=== PATIENT | male | born 1995 | race Native Hawaiian/Other Pacific Islander ===

== ENCOUNTER 2019-11-23 19:09 | Emergency (ER) | payer MEDICAID | END 2019-11-23 19:50 | disposition left against medical advice (07) | LOC: JP.ED 19:09 | DX: Z53.21 Procedure and treatment not carried out due to patient leaving prior to being seen by health care provider (principal) ==

== ENCOUNTER 2020-12-16 10:32 | Emergency (ER) | payer MEDICAID ==
[2020-12-16] MEDS ORDERED: Sodium Chloride 0.9% 10 ML Syringe FLUSH PRN (11:34)
[2020-12-16] MEDS ORDERED: Sodium Chloride 0.9% 1,000 ML IV STA (11:34)
--- NOTE | 2020-12-16 11:39 | EDM.PDOC ---
ED HPI GENERAL MEDICAL PROBLEM - General Chief Complaint: Abdominal Pain Stated Complaint: SEVER ABDOMINAL PAIN-SENT BY Time Seen by Provider: 12/16/20 11:28 Source of Information: Reports: Patient, Family, RN Notes Reviewed History Limitations: Reports: No Limitations - History of Present Illness INITIAL COMMENTS - FREE TEXT/NARRATIVE: 25-year-old gentleman presents emergency department day complaint of abdominal pain, it is predominantly in left upper quadrant it started early this morning and last use alcohol this morning he does admit to drinking several pints of hard liquor per day. No history of pancreatitis no history of abdominal surgeries. He has not had any fevers. - Related Data Allergies Allergy/AdvReac Type Severity Reaction Status Date / Time No Known Allergies Allergy Verified 12/16/20 11:00 Home Meds: Home Meds NK [No Known Home Meds] 12/16/20 [History] Past Medical History - Past Health History Medical/Surgical History: Denies Medical/Surgical History Social & Family History - Tobacco Use Tobacco Use Status *Q: Never Tobacco User - Caffeine Use Caffeine Use: Reports: Coffee, Energy Drinks, Soda - Alcohol Use Days Per Week of Alcohol Use: 7 Number of Drinks Per Day: 8 Total Drinks Per Week: 56 Date of Last Drink: 12/16/20 Time of Last Drink: 05:00 - Recreational Drug Use Recreational Drug Use: No ED ROS GENERAL - Review of Systems Review Of Systems: See Below Constitutional: Reports: No Symptoms Respiratory: Reports: No Symptoms Cardiovascular: Reports: No Symptoms GI/Abdominal: Reports: Abdominal Pain, Diarrhea, Nausea, Vomiting : Reports: No Symptoms ED EXAM, GI/ABD - Physical Exam Exam: See Below Exam Limited By: No Limitations General Appearance: Alert, WD/WN, No Apparent Distress Respiratory/Chest: No Respiratory Distress, Lungs Clear, Normal Breath Sounds, No Accessory Muscle Use, Chest Non-Tender Cardiovascular: Regular Rate, Rhythm, No Murmur GI/Abdominal Exam: Normal Bowel Sounds, Soft, No Distention, Tender (LUQ pain) Course - Vital Signs Last Recorded V/S: Last Vital Signs Temp 97.9 F 12/16/20 11:07 Pulse 82 12/16/20 14:52 Resp 16 12/16/20 11:07 BP 150/84 H 12/16/20 14:52 Pulse Ox 95 12/16/20 13:47 - Orders/Labs/Meds Orders: Active Orders 24 hr Category Date Time Status Patient Status [ADT] Routine ADT 12/16/20 16:45 Active Intake and Output [RC] QSHIFT Care 12/16/20 16:46 Active Oxygen Therapy [RC] PRN Care 12/16/20 16:45 Active Peripheral IV Care [RC] . DIRECTED Care 12/16/20 11:35 Active Up ad Fabiola [RC] ASDIRECTED Care 12/16/20 16:45 Active Vital Signs [RC] Q4H Care 12/16/20 16:45 Active Nothing per Oral Now Diet [DIET] Diet 12/16/20 Dinner Active HYDROmorphone [Dilaudid] Med 12/16/20 16:27 Active 0.5 mg IVPUSH Q1H PRN Iopamidol [Isovue-300 (61%)] Med 12/16/20 11:51 Active 126 ml IV . DIRECTED PRN LORazepam [Ativan] Med 12/16/20 16:48 Active 1 mg IVPUSH Q4H PRN Ondansetron [Zofran] Med 12/16/20 16:50 Active 4 mg IVPUSH Q8H PRN Sodium Chloride 0.9% [Normal Saline] 1,000 ml Med 12/16/20 13:00 Active IV ASDIRECTED Sodium Chloride 0.9% [Normal Saline] 1,000 ml Med 12/16/20 16:00 Active IV ASDIRECTED Sodium Chloride 0.9% [Normal Saline] 1,000 ml Med 12/16/20 17:00 Active IV ASDIRECTED Sodium Chloride 0.9% [Normal Saline] 100 ml Med 12/16/20 12:00 Active IV ASDIRECTED Sodium Chloride 0.9% [Saline Flush] Med 12/16/20 11:34 Active 10 ml FLUSH ASDIRECTED PRN Isolation [COMM] Stat Oth 12/16/20 11:38 Ordered Peripheral IV Insertion Adult [OM.PC] Urgent Oth 12/16/20 11:34 Ordered Medication Orders Hydromorphone HCl (Hydromorphone 0.5 Mg/0.5 Ml Syringe) 0.5 mg IVPUSH Q1H PRN PRN Reason: Abdominal Pain Sodium Chloride (Normal Saline) 100 mls @ 3 mls/sec IV ASDIRECTED FELY Last Admin: 12/16/20 11:58 Dose: 3 mls/sec Documented by: JIL Sodium Chloride (Normal Saline) 1,000 mls @ 999 mls/hr IV ASDIRECTED FELY Last Admin: 12/16/20 14:30 Dose: 999 mls/hr Documented by: JOSEPH Sodium Chloride (Normal Saline) 1,000 mls @ 250 mls/hr IV ASDIRECTED FELY Last Admin: 12/16/20 16:07 Dose: 250 mls/hr Documented by: [id number] Sodium Chloride (Normal Saline) 1,000 mls @ 150 mls/hr IV ASDIRECTED FELY Iopamidol (Iopamidol 612 Mg/Ml 150 Ml Bottle) 126 ml IV . DIRECTED PRN PRN Reason: RADIOLOGY EXAM Stop: 12/17/20 11:52 Last Admin: 12/16/20 11:58 Dose: 126 ml Documented by: JIL Lorazepam (Lorazepam 2 Mg/Ml Sdv) 1 mg IVPUSH Q4H PRN PRN Reason: Anxiety Ondansetron HCl (Ondansetron 4 Mg/2 Ml Sdv) 4 mg IVPUSH Q8H PRN PRN Reason: Nausea/Vomiting Sodium Chloride (Sodium Chloride 0.9% 10 Ml Syringe) 10 ml FLUSH ASDIRECTED PRN PRN Reason: Keep Vein Open Last Admin: 12/16/20 11:58 Dose: 10 ml Documented by: JIL Labs: Laboratory Tests 12/16/20 12/16/20 12/16/20 Range/Units 11:34 11:45 11:45 WBC 8.9 (4.5-11.0) K/uL RBC 5.39 (4.30-5.90) M/uL Hgb 16.2 H (12.0-15.0) g/dL Hct 46.7 (40.0-54.0) % MCV 87 (80-98) fL MCH 30 (27-31) pg MCHC 35 (32-36) % Plt Count 356 (150-400) K/uL Neut % (Auto) 74.7 H (36-66) % Lymph % (Auto) 12.7 L (24-44) % Trinity % (Auto) 10.9 H (2-6) % Eos % (Auto) 1.5 L (2-4) % Baso % (Auto) 0.2 (0-1) % Sodium 144 (140-148) mmol/L Potassium 4.0 (3.6-5.2) mmol/L Chloride 104 (100-108) mmol/L Carbon Dioxide 24 (21-32) mmol/L Anion Gap 16.4 H (5.0-14.0) mmol/L BUN 6 L (7-18) mg/dL Creatinine 0.9 (0.8-1.3) mg/dL Est Cr Clr Drug Dosing 122.36 mL/min Estimated GFR (MDRD) > 60 (>60) Glucose 109 H (74-106) mg/dL Lactic Acid 2.3 H (0.4-2.0) mmol/L Calcium 9.2 (8.5-10.1) mg/dL Total Bilirubin 1.0 (0.2-1.0) mg/dL AST 144 H (15-37) U/L ALT 245 H (12-78) U/L Alkaline Phosphatase 115 (46-116) U/L Total Protein 7.7 (6.4-8.2) g/dL Albumin 4.3 (3.4-5.0) g/dL Globulin 3.4 (2.3-3.5) g/dL Albumin/Globulin Ratio 1.3 (1.2-2.2) Lipase 736 H (73-393) U/L Ethyl Alcohol mg/dL Influenza Type A RNA (NEGATIVE) RSV RNA (INAAT) (NEGATIVE) Influenza Type B RNA (NEGATIVE) SARS-CoV-2 RNA ([facility]) (NEGATIVE) 12/16/20 12/16/20 Range/Units 12:10 16:50 WBC (4.5-11.0) K/uL RBC (4.30-5.90) M/uL Hgb (12.0-15.0) g/dL Hct (40.0-54.0) % MCV (80-98) fL MCH (27-31) pg MCHC (32-36) % Plt Count (150-400) K/uL Neut % (Auto) (36-66) % Lymph % (Auto) (24-44) % Trinity % (Auto) (2-6) % Eos % (Auto) (2-4) % Baso % (Auto) (0-1) % Sodium (140-148) mmol/L Potassium (3.6-5.2) mmol/L Chloride (100-108) mmol/L Carbon Dioxide (21-32) mmol/L Anion Gap (5.0-14.0) mmol/L BUN (7-18) mg/dL Creatinine (0.8-1.3) mg/dL Est Cr Clr Drug Dosing mL/min Estimated GFR (MDRD) (>60) Glucose (74-106) mg/dL Lactic Acid (0.4-2.0) mmol/L Calcium (8.5-10.1) mg/dL Total Bilirubin (0.2-1.0) mg/dL AST (15-37) U/L ALT (12-78) U/L Alkaline Phosphatase (46-116) U/L Total Protein (6.4-8.2) g/dL Albumin (3.4-5.0) g/dL Globulin (2.3-3.5) g/dL Albumin/Globulin Ratio (1.2-2.2) Lipase (73-393) U/L Ethyl Alcohol 9 mg/dL Influenza Type A RNA Negative (NEGATIVE) RSV RNA (INAAT) Negative (NEGATIVE) Influenza Type B RNA Negative (NEGATIVE) SARS-CoV-2 RNA ([place]) Positive H (NEGATIVE) Meds: Medications Generic Name Dose Route Start Last Admin Trade Name Freq PRN Reason Stop Dose Admin Hydromorphone HCl 0.5 mg 12/16/20 16:27 Hydromorphone 0.5 Mg/0.5 Ml Syringe IVPUSH Q1H PRN Abdominal Pain Sodium Chloride 100 mls @ 3 mls/sec 12/16/20 12:00 12/16/20 11:58 Normal Saline IV 3 mls/sec ASDIRECTED FELY Administration Sodium Chloride 1,000 mls @ 999 mls/hr 12/16/20 13:00 12/16/20 14:30 Normal Saline IV 999 mls/hr ASDIRECTED FELY Administration Sodium Chloride 1,000 mls @ 250 mls/hr 12/16/20 16:00 12/16/20 16:07 Normal Saline IV 250 mls/hr ASDIRECTED FELY Administration Sodium Chloride 1,000 mls @ 150 mls/hr 12/16/20 17:00 Normal Saline IV ASDIRECTED FELY Iopamidol 126 ml 12/16/20 11:51 12/16/20 11:58 Iopamidol 612 Mg/Ml 150 Ml Bottle IV 12/17/20 11:52 126 ml . DIRECTED PRN Administration RADIOLOGY EXAM Lorazepam 1 mg 12/16/20 16:48 Lorazepam 2 Mg/Ml Sdv IVPUSH Q4H PRN Anxiety Ondansetron HCl 4 mg 12/16/20 16:50 Ondansetron 4 Mg/2 Ml Sdv IVPUSH Q8H PRN Nausea/Vomiting Sodium Chloride 10 ml 12/16/20 11:34 12/16/20 11:58 Sodium Chloride 0.9% 10 Ml Syringe FLUSH 10 ml ASDIRECTED PRN Administration Keep Vein Open Discontinued Medications Generic Name Dose Route Start Last Admin Trade Name Freq PRN Reason Stop Dose Admin Hydromorphone HCl 0.5 mg 12/16/20 13:06 12/16/20 13:27 Hydromorphone 0.5 Mg/0.5 Ml Syringe IVPUSH 12/16/20 13:07 0.5 mg ONETIME ONE Administration Hydromorphone HCl 1 mg 12/16/20 14:42 12/16/20 15:03 Hydromorphone 1 Mg/Ml Syringe IVPUSH 12/16/20 14:43 1 mg ONETIME ONE Administration Sodium Chloride 1,000 mls @ 999 mls/hr 12/16/20 11:34 12/16/20 12:11 Normal Saline IV 12/16/20 12:34 999 mls/hr .BOLUS STA Administration Lorazepam 1 mg 12/16/20 16:16 12/16/20 16:28 Lorazepam 2 Mg/Ml Sdv IVPUSH 12/16/20 16:17 1 mg ONETIME ONE Administration Ondansetron HCl 4 mg 12/16/20 15:45 12/16/20 16:09 Ondansetron 4 Mg/2 Ml Sdv IVPUSH 12/16/20 15:46 4 mg ONETIME ONE Administration Sodium Chloride 10 ml 12/16/20 11:51 12/16/20 12:13 Sodium Chloride 0.9% 10 Ml Sdv FLUSH 12/16/20 11:52 10 ml ONETIME ONE Administration Departure - Departure Time of Disposition: 17:25 Disposition: DC/Tfer to Acute Hospital 02 Condition: Fair Clinical Impression: COVID-19 Pancreatitis Qualifiers: Chronicity: acute Pancreatitis type: alcohol induced Acute pancreatitis complication: no infection or necrosis Qualified Code(s): K85.20 - Alcohol induced acute pancreatitis without necrosis or infection - Discharge Information Referrals: Manuela Lam DO [Primary Care Provider] - Forms: ED Department Discharge Sepsis Event Note (ED) - Evaluation Sepsis Screening Result: No Definite Risk - Focused Exam Vital Signs: Vital Signs Temp Pulse Resp BP Pulse Ox 12/16/20 14:52 82 150/84 H 12/16/20 13:47 77 135/87 95 12/16/20 12:02 79 175/100 H 12/16/20 11:07 97.9 F 87 16 148/108 H 97 12/16/20 11:00 97.9 F 87 16 148/108 H 97 - My Orders Last 24 Hours: My Active Orders 12/16/20 11:34 Sodium Chloride 0.9% [Saline Flush] 10 ml FLUSH ASDIRECTED PRN Peripheral IV Insertion Adult [OM.PC] Urgent 12/16/20 11:35 Peripheral IV Care [RC] . DIRECTED 12/16/20 11:38 Isolation [COMM] Stat 12/16/20 11:51 Iopamidol [Isovue-300 (61%)] 126 ml IV . DIRECTED PRN 12/16/20 12:00 Sodium Chloride 0.9% [Normal Saline] 100 ml IV ASDIRECTED 12/16/20 13:00 Sodium Chloride 0.9% [Normal Saline] 1,000 ml IV ASDIRECTED 12/16/20 16:00 Sodium Chloride 0.9% [Normal Saline] 1,000 ml IV ASDIRECTED 12/16/20 16:27 HYDROmorphone [Dilaudid] 0.5 mg IVPUSH Q1H PRN 12/16/20 16:45 Patient Status [ADT] Routine Oxygen Therapy [RC] PRN Up ad Fabiola [RC] ASDIRECTED Vital Signs [RC] Q4H 12/16/20 16:46 Intake and Output [RC] QSHIFT 12/16/20 16:48 LORazepam [Ativan] 1 mg IVPUSH Q4H PRN 12/16/20 16:50 Ondansetron [Zofran] 4 mg IVPUSH Q8H PRN 12/16/20 Dinner Nothing per Oral Now Diet [DIET] Sodium Chloride 0.9% [Normal Saline] 1,000 ml IV ASDIRECTED - Assessment/Plan Last 24 Hours: My Active Orders 12/16/20 11:34 Sodium Chloride 0.9% [Saline Flush] 10 ml FLUSH ASDIRECTED PRN Peripheral IV Insertion Adult [OM.PC] Urgent 12/16/20 11:35 Peripheral IV Care [RC] . DIRECTED 12/16/20 11:38 Isolation [COMM] Stat 12/16/20 11:51 Iopamidol [Isovue-300 (61%)] 126 ml IV . DIRECTED PRN 12/16/20 12:00 Sodium Chloride 0.9% [Normal Saline] 100 ml IV ASDIRECTED 12/16/20 13:00 Sodium Chloride 0.9% [Normal Saline] 1,000 ml IV ASDIRECTED 12/16/20 16:00 Sodium Chloride 0.9% [Normal Saline] 1,000 ml IV ASDIRECTED 12/16/20 16:27 HYDROmorphone [Dilaudid] 0.5 mg IVPUSH Q1H PRN 12/16/20 16:45 Patient Status [ADT] Routine Oxygen Therapy [RC] PRN Up ad Fabiola [RC] ASDIRECTED Vital Signs [RC] Q4H 12/16/20 16:46 Intake and Output [RC] QSHIFT 12/16/20 16:48 LORazepam [Ativan] 1 mg IVPUSH Q4H PRN 12/16/20 16:50 Ondansetron [Zofran] 4 mg IVPUSH Q8H PRN 12/16/20 Dinner Nothing per Oral Now Diet [DIET] Sodium Chloride 0.9% [Normal Saline] 1,000 ml IV ASDIRECTED Plan: Assessment Acuity = acute Site and laterality = pancreatitis complicated the patient with known history of Covid 19 asymptomatic Etiology = probably related to alcohol Manifestations = abdominal pain Location of injury = Home Lab values = CBC unremarkable CHEM panel was unremarkable except for lactic acid slightly elevated 2.3 with consistent lactic acidosis AST at 144 ALT 245 consistent with elevated liver enzymes lipase elevated 736 CT scan describes inflammation around the pancreas consistent with pancreatitis he is Covid positive negative for influenza A and B negative for RSV Plan Called multiple facilities throughout the day unsuccessful in securing admission and bed placement for him however I did place him on the list at [facility] and they had an opening I spoke with the hospitalist on-call Dr. Andrews at 1720 who kindly excepted the patient in transport will be transported via EMS ground he has received 2 L of fluids, is currently on his third bag of fluids normal saline, 2 mg of Dilaudid 1 mg Ativan 4 mg Zofran he remains n.p.o. This note was dictated using [employer] voice recognition software please call with any questions on syntax or grammar.
[2020-12-16] MEDS ORDERED: Iopamidol 612 MG/ML 150 ML Bottle IV PRN (11:51)
[2020-12-16] MEDS ORDERED: Sodium Chloride 0.9% 10 ML SDV FLUSH ONE (11:51)
[2020-12-16] MEDS ORDERED: Sodium Chloride 0.9% 100 ML IV SCH (12:00)
--- NOTE | 2020-12-16 12:29 | CT ---
Abdomen Pelvis w Cont CLINICAL HISTORY: Right upper quadrant pain COMPARISON: None. TECHNIQUE: Transverse scans were obtained from the base of the lungs to the pubic symphysis following oral contrast and IV infusion of contrast.Auto dosage reduction and iterative reconstructiontechniques employed. FINDINGS: The lung bases are clear. The liver shows diffuse fatty infiltration. There is a 1.6 cm fatty density focus in the left lobe adjacent to the gallbladder. The gallbladder has a normal contour. The spleen has a normal size and shape. The pancreatic head is generally enlarged. There is fluid around the pancreatic head and the descending and transverse duodenum as well as impression of some duodenal thickening.. The adrenal glands appear normal bilaterally . The kidneys show no mass or hydronephrosis. Small stones could be obscured by contrast.. The ureters have a normal course and caliber. The urinary bladder has a normal contour.. The aorta has a normal contour. There is no suspicious retroperitoneal adenopathy. Small intestinal configuration is nonacute. There is gas and feces in the colon. IMPRESSION: There is a moderate amount of fluid around the pancreatic head as well as the descending and proximal transverse duodenum. There is impression of generalized duodenal thickening area the pancreatic head is mildly enlarged. Peritendinous is most likely etiology. Diffuse fatty infiltration of the liver.
[2020-12-16] MEDS ORDERED: Sodium Chloride 0.9% 1,000 ML IV SCH ×3 (13:00→17:00)
[2020-12-16] MEDS ORDERED: HYDROmorphone 0.5 MG/0.5 ML Syringe IVPUSH ONE (13:06)
[2020-12-16 13:31] LABS: CORONAVIRUS COVID-19 NAA POSITIVE (NEGATIVE)
[2020-12-16] MEDS ORDERED: HYDROmorphone 1 MG/ML Syringe IVPUSH ONE (14:42)
[2020-12-16] MEDS ORDERED: Ondansetron 4 MG/2 ML SDV IVPUSH ONE (15:45)
[2020-12-16] MEDS ORDERED: LORazepam 2 MG/ML SDV IVPUSH ONE (16:16)
[2020-12-16] MEDS ORDERED: HYDROmorphone 0.5 MG/0.5 ML Syringe IVPUSH PRN (16:27)
[2020-12-16] MEDS ORDERED: LORazepam 2 MG/ML SDV IVPUSH PRN (16:48)
[2020-12-16] MEDS ORDERED: Ondansetron 4 MG/2 ML SDV IVPUSH PRN (16:50)
== END 2020-12-16 19:26 ==
LOC: JP.ED 10:32
DX: U07.1 COVID-19 (principal); K85.20 Alcohol induced acute pancreatitis without necrosis or infection
CPT/HCPCS: 0241U; 36415; 74177; 80053; 80307; 83605; 83690; 85025; 96374; 96375; 96376; 99285; J1170; J2060; J2405; J7030; Q9967